=== PATIENT | female | born 1950 | race Caucasian/White ===

== ENCOUNTER → 2017-02-04 | Outpatient (CLI) | payer OTHER ==
--- NOTE | ~2017-02-04 | EKG ---
[address] [address] ELECTROCARDIOGRAM REPORT Name: WALIRIGOBERTO Room #: REG MARGIE King#: [id number] Admission: 02/04/17 Attend Phys: Miguelina Finley MD Discharge: Date of : 50 Report #: [id number] THIS REPORT FOR: //name// [facility] Test Date: 2017-02-04 Test Time: 12:16:40 Pat Name: RIGOBERTO KEYES Department: Room: Gender: F Spectrograph Operator: José Miguel QURESHI : 1950 Requested By: Miguelina Finley Order Number: [id number] MD: Kishore Sim Measurements Intervals [place] Rate: 76 P: 20 W[place]: 134 QRS: -27 QRSD: 88 T: 43 QT: 412 QTc: 464 Interpretive Statements Sinus rhythm Borderline left axis deviation No previous ECG available for comparison Electronically Signed On 02-04-2017 13:25:56 CDT by Kishore Sim [email or web address] <ELECTRONICALLY SIGNED> By: Kishore Sim MD 02/04/17 1325 1216 1216 MD FREIDA Barreto
== END ==
LOC: CV 11:48
DX: Z01.818 Encounter for other preprocedural examination (principal)

== ENCOUNTER → 2021-05-09 | Outpatient (CLI) | payer OTHER ==
[~2021-05-09] MED LIST: ALENDRONATE SOD70 MG PO; BIOTIN10000 MC1 PO; CITALOPRAM HBR40 MG PO; MAGNESIUM250 M1 PO; OMEPRAZOLE 20 M20 M1 PO; SUPER B MAXI C0.4 MG PO; TURMERIC CURCU1 EACH PO; VITAMIN D31250 MCG PO; VITAMIN K PO; [UNRECOGNIZED DRUG - OTHER] PO
== END ==
LOC: LAB 06:10
PROVIDERS: ATTEND Student in an Organized Health Care Education/Training Program
DX: Z01.812 Encounter for preprocedural laboratory examination (principal); Z20.822 Contact with and (suspected) exposure to COVID-19

== ENCOUNTER → 2021-05-11 | Outpatient (CLI) | payer OTHER ==
[~2021-05-11] VITALS: Ht 165.1 cm; Wt 81.2 kg
--- NOTE | 2021-05-13 09:23 | P ---
[facility] [place] [address] PROCEDURE REPORT Name: RIGOBERTO KEYES Room #: REG [facility] Fernando#: [id number] Admission: 05/11/21 Attend Phys: Timmy Medrano Discharge: Date of : 50 Report #: [id number] THIS REPORT FOR: cc: Janette Silveira MD, Kristin E. MD McElhinney, Christian C. MD ~ cc: Janette Silveira MD DATE OF SERVICE: 05/11/2021 PROCEDURE PERFORMED: Colonoscopy with polypectomies. HISTORY OF PRESENT ILLNESS: The patient is a 70-year-old female with a history of colon polyps, last colonoscopy 5 years ago with adenomatous polyps removed. She is here for routine followup. She denies any symptoms, no family history of colon cancer. DESCRIPTION OF PROCEDURE: The risks and benefits of the procedure were explained to the patient, those risks including but not limited to bleeding, perforation and the risk of sedation. She understood these risks and gave informed consent. Sedation was given using propofol per anesthesia. Next, a digital rectal exam was initially performed, which was normal. Next, using a standard Olympus colonoscope, the scope was placed in the patient's anus and advanced under direct vision to the cecum. The overall prep was excellent. The cecum and ileocecal valve were normal in appearance. In the ascending colon, a 3 and 5 mm sessile polyps were noted, both removed with cold forceps. In the transverse colon, an 8 mm sessile polyp was noted. This was removed by snare cautery. The descending colon was normal. A few small scattered diverticula were noted in the sigmoid colon. No evidence of inflammation, otherwise normal. In the rectum, a 3-mm sessile polyp noted and removed with cold forceps. On retroflexion, no abnormalities were noted. The scope was then withdrawn and the procedure terminated. The patient tolerated the procedure well. IMPRESSION: 1. Four colonic polyps. 2. Sigmoid diverticulosis. 3. Otherwise normal colonoscopy. RECOMMENDATIONS: 1. Await biopsy results. 2. Repeat colonoscopy in [address] [address] PROCEDURE REPORT Name: RIGOBERTO KEYES Room #: REG [facility] Fernando#: [id number] Admission: 05/11/21 Attend Phys: Timmy Medrano Discharge: Date of : 50 Report #: [id number] Thank you for allowing me to participate in her care. <ELECTRONICALLY SIGNED> By: Timmy Roberson MD 05/13/21 0923 0838 2140 Timmy Roberson MD /nt
--- NOTE | 2021-05-15 17:07 | PATH ---
[facility] [place] [address] [place] [address] PATHOLOGY RPT PROCEDURE Name: JENY AVILES Room #: REG MARGIE Angelo.#: [id number] Admission: 05/11/21 Date of : 50 Discharge: Report #: [id number] Path Case #: [id number] [facility] Accession Number: [id number] . 01 Material submitted: . PART A: colon - ASCENDING COLON POLYP X2. Modifiers: ascending PART B: colon - TRANSVERSE COLON POLYP. Modifiers: transverse PART C: rectum - RECTAL POLYP . 01 Clinical history: . COLONOSCOPY HISTORY OF POLYPS DS/COLONOSCOPY /HX OF POLYPS . 02 Diagnosis: A. Colonic mucosa, ascending colon polyp, biopsy: - Tubular adenoma, fragments. . B. Colonic mucosa, transverse colon polyp, biopsy: - Hyperplastic polyp. . C. Rectal type mucosa, rectal polyp, biopsy: - Hyperplastic polyp. . (SCA:david; 05/14/2021) MBR 05/14/2021 1201 Local . 02 Electronically signed: . Wilfred Barcenas DO, Pathologist NPI- [id number] . 01 Gross description: . A. Received in formalin labeled "Jeny Aviles, ascending colon polyp" are multiple fragments of collier-brown soft tissue measuring in aggregate 1.2 x 0.4 x 0.3 cm. The specimen is submitted entirely in A1. . B. Received in formalin labeled "Jeny Aviles transverse colon polyp" is a fragment of collier-brown soft tissue measuring 0.9 x 0.5 x 0.3 cm. The specimen is submitted entirely in B1. . C. Received in formalin labeled "Jeny Aviles rectal polyp is a fragment of collier-brown soft tissue measuring 0.5 x 0.4 x 0.3 cm. The specimen is submitted entirely in C1.([facility] [place]; 05/13/2021) GZA/GZA 05/14/2021 1200 Local . 02 Pathologist provided ICD-10: D12.2, K63.5, K62.[address] [address] PATHOLOGY RPT PROCEDURE Name: JENY AVILES NATHAN Room #: REG Martita King#: [id number] Admission: 05/11/21 Date of : 50 Discharge: Report #: [id number] Path Case #: [id number] . 02 [facility] . [id number], [id number], [id number] Specimen Comment: A courtesy copy of this report has been sent to [phone], [phone] Specimen Comment: [id number] Specimen Comment: Report sent to / DR WANG Performed at: 01 [facility] [address] [id number] MD Nixon Winslow MD Phone: [phone] Performed at: [address] [id number] MD Yobani Rock MD Phone: [phone]
== END | disposition home or self-care (01) ==
LOC: GI 07:36
PROVIDERS: ATTEND Specialist
DX: Z12.11 Encounter for screening for malignant neoplasm of colon (principal); Z86.010 Personal history of colon polyps; D12.2 Benign neoplasm of ascending colon; K57.30 Diverticulosis of large intestine without perforation or abscess without bleeding; F32.9 Major depressive disorder, single episode, unspecified; G47.30 Sleep apnea, unspecified; Z98.890 Other specified postprocedural states; Z79.899 Other long term (current) drug therapy; Z87.891 Personal history of nicotine dependence; Z98.51 Tubal ligation status; Z90.710 Acquired absence of both cervix and uterus
CPT/HCPCS: 62110; 62900